=== PATIENT | male | born 1965 | race Caucasian/White ===

== ENCOUNTER 2020-08-08 18:46 | Inpatient (IN) | payer OTHER ==
[~2020-08-08] VITALS: Ht 177.8 cm; Wt 97.1 kg
[2020-08-08 22:21] VITALS: BP 130/97
[2020-08-09 00:10] VITALS: BP 111/71
[2020-08-09] MEDS ORDERED: LIPITOR 20 MG T20 M1 PO (01:24)
[2020-08-09] MEDS ORDERED: NORVASC5 M1 PO (01:26)
[2020-08-09] MEDS ORDERED: FLOMAX0.4 MG PO (01:27)
[2020-08-09] MEDS ORDERED: BUSPAR30 MG PO ×2 (01:28→01:30)
[2020-08-09] MEDS ORDERED: OMEPRAZOLE20 M2 PO (01:34)
[2020-08-09] MEDS ORDERED: PROAIR RESPICL90 MCG IH (01:37)
[2020-08-09] MEDS ORDERED: SEROQUEL 50 MG50 M1 PO (01:38)
[2020-08-09] MEDS ORDERED: SEROQUEL XR 30300 M1 PO (01:39)
[2020-08-09] MEDS ORDERED: ADVAIR HFA 230M12 GM INH (01:39)
[2020-08-09] MEDS ORDERED: SPIRIVA RESPIMAT4 G1 INH (01:41)
--- NOTE | 2020-08-09 02:02 | NUR ---
PATIENT ARRIVED VIA CART @ 2200 FROM ER, TRANSFERRED TO BED. A&OX4. FALL PRECAUTIONS IN PLACE. KITCHEN STEWARD/STEWARDESS VISITED PATIENT. PATIENT ON 12L HIGH FLOW. REVIEWED PATIENT HISTORY AND MEDICATIONS. ADMISSION PROCESS INITIATED AND COMPLETED. OREINTED TO ROOM AND FLOOR POLICY.
[2020-08-09 05:00] VITALS: BP 116/72
[2020-08-09 05:16] LABS: CALCIUM 8.8 mg/dL (8.5-10.1); CREATININE 1.2 mg/dL (0.7-1.3); MAGNESIUM 2.1 mg/dL (1.8-2.4); POTASSIUM 3.4 mmol/L (3.5-5.1)
[2020-08-09 05:19] LABS: HEMATOCRIT 28.9 % (42.0-52.0); HEMOGLOBIN 9.1 gm/dL (14.0-18.0); MCH 25.5 pg (26.0-34.0); MCHC 31.6 g/dL (28.0-37.0); MCV 80.9 fL (80.0-100.0); RBC 3.58 mil/uL (4.50-6.00); RDW 16.1 % (10.5-14.5); WBC 21.8 thou/uL (4.0-11.0)
[2020-08-09 08:13] VITALS: BP 129/86
[2020-08-09 10:01] LABS: PROTIME 10.3 Seconds (9.3-11.4)
--- NOTE | 2020-08-09 11:20 | NUR ---
S. C. CONSULT [id number] - [id number] WAS COMPLETED BY JENNIFER RUBIO.
[2020-08-09 11:32] VITALS: BP 129/70
[2020-08-09 12:38] LABS: CLARITY TURBID; COLOR DARK YELLOW; SOURCE RIGHT CHEST; TOTAL VOLUME 56 mL
[2020-08-09 12:45] LABS: BF NUCLEATED CELLS 53187 /mm3; BF RBC 10012 /mm3
--- NOTE | 2020-08-09 13:48 | NUR ---
Met with patient who is direct admit from [facility]. Admits with resp failure, pna, hypoxia. Patient reports he lives in independent home with all needs on one level. Patient lives with his [employer] dog. Uses no assistive device and does not drive. He has medicare and medicaid. He is extremenly anxious to discharge home. He reports he wants to leave today however on high liter of oxygen. Patient reports he has a friend assisting with dog but cannot for long. He lives in 100 year old home that he reports has black mold. He has electricity, water and heat. Patient has no home 02, dme or hx of . Has PCP. [facility] following for dc planning.
[2020-08-09 13:59] LABS: BF MACROPHAGE 3 %; BF NEUTROPHILS 96 %
[2020-08-09 15:06] VITALS: BP 120/74
[2020-08-09 20:40] VITALS: BP 108/70
[2020-08-10 03:06] LABS: GLYCOHEMOGLOBIN (HGB A1C) 6.6 % (4.8-5.6)
[2020-08-10 04:45] VITALS: BP 123/74
--- NOTE | 2020-08-10 05:43 | NUR ---
PATIENT SLEPT THROUGH MOST OF THE NIGHT WITHOUT ISSUES. FALL PRECAUTIONS IN PLACE. UP WITH ASSISTENCE. GIVING NORCO FOR PAIN PER ORDER. FOLLOWING CARE PLAN AND ASSESSING NEEDED.
[2020-08-10 12:07] LABS: BODY FLUID ALBUMIN 1.9 g/dL (Not Estab.); BODY FLUID AMYLASE 21 U/L (()); BODY FLUID GLUCOSE 128 mg/dL (()); BODY FLUID LDH 2390 IU/L (()); BODY FLUID PROTEIN 3.7 g/dL (())
[2020-08-10 14:10] VITALS: BP 144/81
[2020-08-10 17:00] VITALS: BP 154/87
--- NOTE | 2020-08-10 17:06 | PATH ---
Formerly [facility] [address] [place] [address] PATHOLOGY RPT PROCEDURE Name: KONSTANTIN DELGADO Room #: 200-I ADM IN [facility].#: [id number] Admission: 08/08/20 Date of : 63 Discharge: Report #: [id number] Path Case #: [id number] Note [facility] Accession Number: [id number] TESTS RESULT FLAG UNITS REF RANGE LAB Clinician Provided Cytology Information No. of containers..01 Other (Miscellaneous) Source: 01 PLEURAL FLUID DIAGNOSIS: 02 PLEURAL FLUID NEGATIVE FOR MALIGNANT CELLS. REACTIVE MESOTHELIAL CELLS ARE PRESENT. THIS INTERPRETATION INCLUDES EVALUATION OF A CELL BLOCK. COMMENT, NUMEROUS ACUTE INFLAMMATORY CELLS PRESENT. Signed out by: 02 Martin Parks MD, Pathologist NPI- [id number] Performed by: 01 Amina Edge, Production Hand ([facility]) Gross description: 01 15ML, YELLOW, 1TP, 1CB /LCS 08/09/2020 1902 Local FLAG LEGEND: L-Low Normal,H-High Normal,LL-Alert Low,HH-Alert High <-Panic Low,>-Panic High,A-Abnormal,AA-Critical Abnormal Performed at: [address] [place] [address] Kofi Mckenzie MD, [address] [place] [id number] Sudhir Jaimes MD, Specimen Comment: A courtesy copy of this report has been sent to [phone], [phone] Specimen Comment: [phone] Specimen Comment: Report sent to / DR BALLESTEROS Performed at: [address], [place], [place] [id number] MD Kofi Mckenzie MD Phone: [phone]
--- NOTE | 2020-08-10 18:14 | NUR ---
ASSUMED CARE AT CHANGE OF SHIFT. ALERT X4, FROM HOME. PT INDICATED HOME HAS BLACK MOLD. PAIN MANAGED WITH PRN MEDS. CONTINUES ON 10L NASAL CANNULA. STAND TO ASSIST WITH IV LINES. BM TODAY. UNDER ISOLATION TO RULE OUT TB MOVED TO NEGITIVE PRESSURE ROOM. CALL LIGHT AND PERSONAL ITEMS IN REACH. MEDS GIVEN PER ORDERED. COMPLIANT WITH CARES
[2020-08-10 21:10] VITALS: BP 155/81
[2020-08-11 03:18] VITALS: BP 141/86
[2020-08-11 07:26] VITALS: BP 143/88
--- NOTE | 2020-08-11 07:49 | NUR ---
assumed pt care at the chnage of shift, pt is awake, alert and orientedx4, sr/sb on the monitor, assessments as charted, c/o chest pain from coughing, pain medicine given with partial relief, remains on 10l via nasal canula, vss, tb skin test given, meds given as per dec, no acute distress noted, report given to day nurse
[2020-08-11 11:34] VITALS: BP 177/105
[2020-08-11 13:13] LABS: HEMOGLOBIN 10.2 gm/dL (14.0-18.0); MCV 80.1 fL (80.0-100.0)
[2020-08-11 13:14] LABS: MCH 25.5 pg (26.0-34.0); MCHC 31.9 g/dL (28.0-37.0); RDW 16.5 % (10.5-14.5); WBC 32.6 thou/uL (4.0-11.0)
[2020-08-11 14:15] LABS: ALBUMIN 1.8 g/dL (3.4-5.0); CALCIUM 8.7 mg/dL (8.5-10.1); CREATININE 1.2 mg/dL (0.7-1.3); MAGNESIUM 1.9 mg/dL (1.8-2.4); POTASSIUM 3.9 mmol/L (3.5-5.1); TOTAL BILIRUBIN 0.2 mg/dL (0.2-1.0); TOTAL PROTEIN 6.4 g/dL (6.4-8.2)
--- NOTE | 2020-08-11 14:59 | NUR ---
Patient cont with high flow oxygen and IV antibiotics. No planned dc over weekend.
[2020-08-11 16:24] VITALS: BP 153/85
--- NOTE | 2020-08-11 19:32 | NUR ---
ASSUMED CARE AT CHANGE OF SHIFT. PAIN MANAGED WITH MEDS. DELTS PLATELET [address] MICHELLE NO ORDERS RECIEVED. CONTINUES ON 10 NASAL CANNULA TITRATING TO 92%. CALL FOR ASSISTANCE. CALL LIGHT AND PERSONAL ITEMS IN REACH.
[2020-08-11 20:00] VITALS: BP 153/90
[2020-08-12 03:30] VITALS: BP 151/97
--- NOTE | 2020-08-12 06:13 | NUR ---
assumed pt care at change of shift, alert and oriented, sr on the monitor, assessments as charted, pain meds given with partial relief of non cardiac chest pain, no acute distress noted, no concerns voiced, remains on tb, isolation, will pass on report
[2020-08-12 07:17] VITALS: BP 156/96
[2020-08-12 11:10] VITALS: BP 101/63; BP 162/101
[2020-08-12 12:30] VITALS: BP 101/63
[2020-08-12 15:04] VITALS: BP 159/96
--- NOTE | 2020-08-12 18:24 | NUR ---
RECEIVED PT'S CARE AROUND 0710; PT. SITTING AT THE BED SIDE; ALERT; DURING AM ASSESSMENT PT. AOX4; NO C/O PAIN; AM MEDICATION GIVEN; EDUCATED ABOUT INSULIN DURING MEALS; ST. "I KNOW IF I GET IT I WILL HAVE TO TAKE IT AT HOME"; EXPLAINED THE REASON OF TAKEN INSULIN; NO ANSWER BACK; INSULIN GIVEN THROUGH THE DAY; SR ON THE MONITOR; EDUCATED ABOUT I/O; ST. UNDERSTANDING; 02 TITRATE TO 4L BY RT; C/O PAIN DURING THE EVENING; PRN PAIN MEDICATION GIVEN; ASSESSMENT CHARGED; FOLLOWING POC; WILL PASS ON REPORT;
[2020-08-12 20:00] VITALS: BP 158/88
[2020-08-13 03:36] LABS: MCHC 31.4 g/dL (28.0-37.0); MCV 79.6 fL (80.0-100.0); PLATELET COUNT 588 thou/uL (150-400); RDW 16.8 % (10.5-14.5); WBC 17.8 thou/uL (4.0-11.0)
[2020-08-13 03:47] LABS: ALBUMIN 1.8 g/dL (3.4-5.0); CALCIUM 8.9 mg/dL (8.5-10.1); MAGNESIUM 2.1 mg/dL (1.8-2.4); PHOSPHORUS 4.2 mg/dL (2.5-4.9); POTASSIUM 3.7 mmol/L (3.5-5.1); TOTAL BILIRUBIN 0.2 mg/dL (0.2-1.0)
[2020-08-13 04:30] VITALS: BP 152/97
--- NOTE | 2020-08-13 05:27 | NUR ---
Pt. rested quietly at short intervals during the night when checked on during frequent rounds. He c/o non-cardiac chest pain and po pain meds given with some relief noted. Pt. was instructed to stay npo after midnight. He became very angry about his test and being npo. He reported that he did have some water and he did not care. Continues on O2 at 4 liters and does become short of air on exertion with good recovery with rest. Emotional support given.
[2020-08-13 07:42] LABS: ANISOCYTOSIS 1+; METAMYELOCYTES 1 %; MYELOCYTES 2 %
[2020-08-13 08:37] VITALS: BP 151/101
[2020-08-13 12:56] VITALS: BP 143/78
[2020-08-13 16:30] VITALS: BP 139/79
--- NOTE | 2020-08-13 17:58 | NUR ---
ASSUMED CARE PT SHIFT CHANGE. ASSESSMENTS CHARTED.MEDS GIVEN PER DEC. PT ALERT AND ORIENTED.VSS. C/O PAIN MANAGED WTIH PO PAIN MEDS. O2 SATS WNL ON 4L O2. DENIES SOB. PT IN PLEASANT MOOD THIS SHIFT. TB TEST ON ARM READS NEG, 3MM IN SIZE. PT UP TO BATHROOM TOLERATES VERY WELL. APPETITE ADEQUATE. PT CURRENTLY SITTING UP IN BED ASKING FOR ANXIETY MEDICINE. WILL CONT TO MONITOR/CARE FOR PT. CONTINUING POC. WILL PASS ON REPORT TO [facility].
[2020-08-13 19:35] VITALS: BP 151/120
[2020-08-13 23:40] VITALS: BP 123/88
--- NOTE | 2020-08-14 01:22 | NUR ---
PAIN WELL CONTROLLED.DENIES ANY NEEDS AT THIS TIME.MONITOR SHOWS SR.SPO2 INCREASED TO 2L.RECEIVED BREATHING TREATMENT PER RT.POC CONTINUED.
[2020-08-14 04:00] VITALS: BP 136/94
[2020-08-14 08:19] VITALS: BP 145/89
[2020-08-14 08:44] LABS: SOURCE RIGHT CHEST
[2020-08-14 09:44] LABS: T-SPOT.TB Negative
[2020-08-14] MEDS ORDERED: AUGMENTIN 875-1 EACH PO (10:19)
[2020-08-14 12:23] VITALS: BP 145/89
--- NOTE | 2020-08-14 12:25 | NUR ---
PT DISCHARGING TODAY TO HOME WITH HOME O2 REFERRAL FAXED TO [facility] SPOKE WITH [employer] IN INTAKE THEY DELIVERED A PORT O2 TANK FOR PT TO DC TO HOME WITH AND WILL SET PT UP AT HOME FOR O2. PT NEEDED TRANSPORT HOME ARRANGED [employer] THROUGH [facility] TRIP #[phone] THEY WILL PICK PT UP ANYWHERE FROM [phone].
[2020-08-14 13:19] VITALS: BP 145/89
--- NOTE | 2020-08-14 16:06 | NUR ---
Patient to dc home. He needs home oxygen. Faxed pertinent information to [facility]. They delivered tank to room and plan delivary of concentrator at home. [facility] called for transport home. Patient has his dog at home and noone to attend to dog today.
--- NOTE | 2020-08-14 16:39 | NUR ---
ASSUMED CARE PT SHIFT CHANGE. ASSESSMETNS CHARTED. MEDS GIVNE PER DEC. PT C/O PAIN AND ANXIETY TREATED WITH MEDS PER DEC. PT ALERT AND ORIENTED.VSS. PT EAGER TO GO HOME. O2 SATS WNL ON 2L O2. REST AND EXERCISE PERFORMED WITH RT. PT TO DC HOME ON OXYGEN. DC PAPERWORK DISCUSSED WITH PT. PRESCRIPTIONS OBTAINED FROM OUTPATIENT PHARMACY. PT CONCERNED ABOUT SCHEDULING APPT WITH PULMONARY. RN TOLD PT WILL TRY AND ARRANGE FOR OFFICE TO CALL PT. PT PROVIDED WITH TELEPHONE NUMBER OF PULM OFFICE. HOME O2 AND TRANSPORT ARRANGED PER CASE MANAGEMENT. IV REMOVED .TELE REMOVED. PT LEFT WITH ALL BELONGINGS.
== END 2020-08-14 17:37 | disposition home or self-care (01) | DRG 871 ==
LOC: 2N 18:46
PROVIDERS: Hospitalist; Internal Medicine; Nurse Practitioner Family; Specialist; ADMIT Hospitalist; ATTEND Hospitalist
PROC: 0W993ZZ Drainage of Right Pleural Cavity, Percutaneous Approach (ICD-10-PCS; principal; 2020-08-09)
DX: A41.9 Sepsis, unspecified organism (principal); J69.0 Pneumonitis due to inhalation of food and vomit; J96.01 Acute respiratory failure with hypoxia; J91.8 Pleural effusion in other conditions classified elsewhere; R91.8 Other nonspecific abnormal finding of lung field; I10 Essential (primary) hypertension; E78.5 Hyperlipidemia, unspecified; F25.9 Schizoaffective disorder, unspecified; F41.9 Anxiety disorder, unspecified; N40.0 Benign prostatic hyperplasia without lower urinary tract symptoms; B37.9 Candidiasis, unspecified; R73.03 Prediabetes; J43.9 Emphysema, unspecified; Z20.828 Contact with and (suspected) exposure to other viral communicable diseases; Z88.8 Allergy status to other drugs, medicaments and biological substances; Z90.89 Acquired absence of other organs; Z98.1 Arthrodesis status; Z80.1 Family history of malignant neoplasm of trachea, bronchus and lung; Z79.899 Other long term (current) drug therapy
CPT/HCPCS: 10081

== ENCOUNTER → 2020-09-13 | Outpatient (CLI) | payer OTHER ==
[~2020-09-13] MED LIST: ADVAIR HFA 230M12 GM INH; AUGMENTIN 875-1 EACH PO; BUSPAR30 MG PO; FLOMAX0.4 MG PO; LIPITOR 20 MG T20 M1 PO; NORVASC5 M1 PO; OMEPRAZOLE20 M2 PO; PROAIR RESPICL90 MCG IH; SEROQUEL 50 MG50 M1 PO; SEROQUEL XR 30300 M1 PO; SPIRIVA RESPIMAT4 G1 INH
== END ==
LOC: PET 11:31 → RAD 11:52 → PET 11:52
PROVIDERS: ATTEND Internal Medicine
DX: R06.02 Shortness of breath (principal)

== ENCOUNTER → 2020-10-18 | Outpatient (CLI) | payer OTHER | LOC: RAD 11:28 | PROVIDERS: ATTEND Internal Medicine | DX: J44.9 Chronic obstructive pulmonary disease, unspecified (principal) ==

== ENCOUNTER → 2020-12-11 | Outpatient (CLI) | payer OTHER | LOC: CAT 12-08 14:20 | PROVIDERS: ATTEND Internal Medicine | DX: K76.0 Fatty (change of) liver, not elsewhere classified (principal); R91.8 Other nonspecific abnormal finding of lung field; J43.9 Emphysema, unspecified; D35.02 Benign neoplasm of left adrenal gland ==